=== PATIENT | male | born 1980 | race Caucasian/White ===

== ENCOUNTER 2016-11-26 18:12 | Emergency (ER) | payer BC ==
[~2016-11-26] VITALS: Ht 180.3 cm; Wt 80.0 kg
[2016-11-26 18:25] VITALS: TEMP 98.7; Ht 180.3 cm; Wt 80.0 kg
--- OUTSIDE RECORDS SUMMARY | 2016-11-26 18:43 | XMS REPORT ---
Author Author Nicko Young Organization eClinicalWorks Address Unknown Phone Unavailable Care Team Providers Care Citrix Systems Administrator Name Role Phone Nicko Young CP Unavailable Allergies No Known Allergies Problems Problem Type Condition Code Onset Dates Condition Status Problem Generalized anxiety disorder F41.1 Active Problem Screening for heart disease Z13.6 Active Problem Depression, unspecified depression type F32.9 Active Assessment Encounter for administrative examinations Z02.9 Active Problem Abnormal glucose R73.09 Active Problem Severe episode of recurrent major depressive disorder, without psychotic features F33.2 Active Problem Alcoholism F10.20 Active Problem Gastroesophageal reflux disease without esophagitis K21.9 Active Problem Alcohol withdrawal, with perceptual disturbance F10.232 Active Problem Fatigue, unspecified type R53.83 Active Problem Essential hypertension I10 Active Problem Anxiety F41.9 Active Medications Medication Code System Code Instructions Start Date End Date Status Dosage Pantoprazole Sodium [facility] [address]-43 40 MG Orally Once a day Mar 12, 2016 1 tablet Mens Multi Vitamin & Mineral [facility] [address] - Orally as directed Xanax XR [facility] [address]-40 1 MG Orally Once a day May 29, 2016 1 tablet Paxil [facility] [address]-88 40 MG Orally Once a day Apr 02, 2016 1 tablet in the morning Metoprolol Tartrate [facility] [address]-40 25 MG Orally Twice a day May 06, 2016 0.5 tablet with food Aspirin [facility] [address]-76 325 MG Orally Once a day 1 tablet Chlordiazepoxide HCl [facility] [address]-02 25 MG Orally BID prn Apr 30, 2016 1 capsule as needed Procedures Procedure Coding System Code Date FMLA Payment CPT-4 FMLA Jun 02, 2016 Results No Known Results Summary Purpose eClinicalWorks Submission
--- OUTSIDE RECORDS SUMMARY | 2016-11-26 18:43 | XMS REPORT ---
Author Author Ernesto Blair eClinicalWorks Address Unknown Phone Unavailable Care Team Providers Care Peoplesoft Analyst Name Role Phone Ernesto Blair CP Unavailable Allergies No Known Allergies Problems Problem Type Condition Code Onset Dates Condition Status Problem Screening for heart disease Z13.6 Active Problem Depression, unspecified depression type F32.9 Active Problem Fatigue, unspecified type R53.83 Active Problem Generalized anxiety disorder F41.1 Active Problem Abnormal glucose R73.09 Active Medications No Known Medications Results No Known Results Summary Purpose eClinicalWorks Submission
--- OUTSIDE RECORDS SUMMARY | 2016-11-26 18:43 | XMS REPORT ---
Author Author Nicko Young Organization eClinicalWorks Address Unknown Phone Unavailable Care Team Providers Care Ferryboat Deckhand Name Role Phone Nicko Young CP Unavailable Allergies No Known Allergies Problems Problem Type Condition Code Onset Dates Condition Status Problem Generalized anxiety disorder F41.1 Active Problem Abnormal glucose R73.09 Active Problem Essential hypertension I10 Active Problem Anxiety F41.9 Active Problem Alcoholism F10.20 Active Problem Screening for heart disease Z13.6 Active Problem Depression, unspecified depression type F32.9 Active Problem Alcohol withdrawal, with perceptual disturbance F10.232 Active Problem Fatigue, unspecified type R53.83 Active Medications No Known Medications Results No Known Results Summary Purpose eClinicalWorks Submission
--- OUTSIDE RECORDS SUMMARY | 2016-11-26 18:43 | XMS REPORT ---
Author Author Nicko Young Organization eClinicalWorks Address Unknown Phone Unavailable Care Team Providers Care Terrazzo Polisher Helper Name Role Phone Nicko Young CP Unavailable Allergies No Known Allergies Problems Problem Type Condition Code Onset Dates Condition Status Problem Generalized anxiety disorder F41.1 Active Problem Screening for heart disease Z13.6 Active Problem Depression, unspecified depression type F32.9 Active Problem Abnormal glucose R73.09 Active Problem Severe episode of recurrent major depressive disorder, without psychotic features F33.2 Active Problem Alcoholism F10.20 Active Problem Gastroesophageal reflux disease without esophagitis K21.9 Active Problem Alcohol withdrawal, with perceptual disturbance F10.232 Active Problem Fatigue, unspecified type R53.83 Active Problem Essential hypertension I10 Active Problem Anxiety F41.9 Active Medications No Known Medications Results No Known Results Summary Purpose eClinicalWorks Submission
--- OUTSIDE RECORDS SUMMARY | 2016-11-26 18:43 | XMS REPORT ---
Author Author Nicko Young Organization eClinicalWorks Address Unknown Phone Unavailable Care Team Providers Care Prescriptionist Name Role Phone Nicko Young CP Unavailable [...]
--- OUTSIDE RECORDS SUMMARY | 2016-11-26 18:43 | XMS REPORT ---
Author Author Ernesto Blair eClinicalWorks Address Unknown Phone Unavailable Care Team Providers Care Toy Assembly Supervisor Name Role Phone Ernesto Blair CP Unavailable Allergies, Adverse Reactions, Alerts Substance Reaction Event Type N.K.D.A. Info Not Available Non Drug Allergy Problems Problem Type Condition Code Onset Dates Condition Status Problem Generalized anxiety disorder F41.1 Active Problem Screening for heart disease Z13.6 Active Problem Depression, unspecified depression type F32.9 Active Problem Severe episode of recurrent major depressive disorder, without psychotic features F33.2 Active Problem Alcoholism F10.20 Active Problem Gastroesophageal reflux disease without esophagitis K21.9 Active Problem Alcohol withdrawal, with perceptual disturbance F10.232 Active Problem Fatigue, unspecified type R53.83 Active Problem Essential hypertension I10 Active Problem Anxiety F41.9 Active Assessment Elevated liver enzymes R74.8 Active Assessment Essential hypertension I10 Active Assessment Alcoholism F10.20 Active Assessment Severe episode of recurrent major depressive disorder, without psychotic features F33.2 Active Assessment Anxiety F41.9 Active Assessment Gastroesophageal reflux disease without esophagitis K21.9 Active Problem Abnormal glucose R73.09 Active Medications Medication Code System Code Instructions Start Date End Date Status Dosage Xanax XR [facility] [address]-50 1 MG Orally Once a day May 29, 2016 1 tablet Zofran ODT [facility] [address]-16 8 MG Orally TID Apr 28, 2016 May 28, 2016 1 tablet on the tongue and allow to dissolve Campral [facility] 0 333 MG Orally Three times a day May 06, 2016 May 10, 2016 2 tablets Metoprolol Tartrate [facility] [address]-32 25 MG Orally Twice a day May 06, 2016 0.5 tablet with food Aspirin [facility] [address]-18 325 MG Orally Once a day 1 tablet Mens Multi Vitamin & Mineral [facility] 66[address] - Orally as directed Naltrexone HCl [facility] [address]-07 50 MG Orally Once a day Apr 28, 2016 May 05, 2016 1 tablet Pantoprazole Sodium [facility] [address]-03 40 MG Orally Once a day Mar 12, 2016 1 tablet Paxil [facility] [address]-53 40 MG Orally Once a day Apr 02, 2016 1 tablet in the morning Chlordiazepoxide HCl [facility] [address]-61 25 MG Orally BID prn Apr 30, 2016 1 capsule as needed Procedures Procedure Coding System Code Date ASSAY OF GGT CPT-4 91952 May 29, 2016 VENIPUNCT, ROUTINE* CPT-4 10726 May 29, 2016 COMPREHEN METABOLIC PANEL CPT-4 15434 May 29, 2016 Office Visit, Est Pt., Level 3 CPT-4 77563 May 29, 2016 Vital Signs Date/Time: May 29, 2016 Weight 184.8 lbs Height 71 in Temperature 99.2 F Pulse 98 /min Blood Pressure Diastolic 92 mm Hg Blood Pressure Systolic 130 mm Hg Weight Change 3.2 lb lbs BMI 25.77 Index Oximetry 98% on room air % Results Name Result Date Reference Range Unit Abnormality Flag *GGT ----GGT 177 [id number] 12-64 U/L H eGFR ----eGFR >60 [id number] >60 mL/min *Comprehensive Metabolic Panel (CMP) ----Chloride 101 [id number] 99-111 mEq/L ----Potassium 4.8 19479729 3.5-5.2 mEq/L ----Albumin 4.4 17091687 3.5-5.0 g/dL ----CO2 29 [id number] 23-31 mEq/L ----Alkaline Phosphatase 132 [id number] 40-150 U/L ----Protein 7.0 21904007 6.1-7.7 g/dL ----Bilirubin Total 0.8 94910117 0.2-1.2 mg/dL ----Anion Gap 10 [id number] 3-20 ----Calcium 9.7 99923707 8.9-10.5 mg/dL ----Globulin 2.6 88547824 1.8-4.0 g/dL ----Sodium 140 [id number] 135-144 mEq/L ----BUN 4 [id number] 9-21 mg/dL L ----ALT (SGPT) 21 [id number] 0-55 U/L ----AST (SGOT) 36 [id number] 5-34 U/L H ----Creatinine 1.09 [id number] 0.72-1.25 mg/dL ----Glucose 85 [id number] 70-99 mg/dL Summary Purpose eClinicalWorks Submission
--- OUTSIDE RECORDS SUMMARY | 2016-11-26 18:43 | XMS REPORT ---
Author Author Ernesto Blair eClinicalWorks Address Unknown Phone Unavailable Care Team Providers Care Curtain Stitcher Name Role Phone Ernesto Blair CP Unavailable [...]
--- OUTSIDE RECORDS SUMMARY | 2016-11-26 18:44 | XMS REPORT | Continuity of Care Document ---
Author Author [facility] Organization [facility] Address Unknown Phone Unavailable Allergies Active Description Code Type Severity Reaction Onset Reported/Identified Relationship to Patient Clinical Status Yes No Known Allergies No Known Allergies Drug Allergy Unknown N/A 12/11/2013 Medications Problems Date Dx Coded Attending Type Code Diagnosis Diagnosed By 12/11/2013 Reece Santana MD 276.2 ACIDOSIS 12/11/2013 Reece Santana MD 276.51 DEHYDRATION 12/11/2013 Reece Santana MD 300.02 GENERALIZED ANXIETY DIS 12/11/2013 Reece Santana MD 305.00 ALCOHOL ABUSE-UNSPEC 12/11/2013 Reece Santana MD 305.1 TOBACCO USE DISORDER 12/11/2013 Reece Santana MD 305.90 DRUG ABUSE NEC-UNSPEC 12/11/2013 Reece Santana MD 462 ACUTE PHARYNGITIS 12/11/2013 Reece Santana MD 530.11 REFLUX ESOPHAGITIS 12/11/2013 Reece Santana MD 530.82 ESOPHAGEAL HEMORRHAGE 12/11/2013 Reece Santana MD 535.50 UNSP GASTRITIS GASTRODUODENITIS W/O MENTN HEMORG 12/11/2013 Reece Santana MD 553.3 DIAPHRAGMATIC HERNIA 12/11/2013 Reece Santana MD 584.9 ACUTE RENAL FAILURE, UNSPECIFIED 12/11/2013 Reece Santana MD 780.1 HALLUCINATIONS 12/11/2013 Reece Santana MD 782.4 JAUNDICE NOS 12/11/2013 Reece Santana MD 787.01 NAUSEA WITH VOMITING Procedures Code Description Performed By Performed On 45.16 ESOPHAGOGASTRODUODENOSCOPY [EGD] W/CLOSED BIOPSY Arin YEH, Jose Antonio N 12/11/2013 Results Test Result Range CHEM/HEM PROFILE-BEDSIDE - 12/11/13 07:38 POTASSIUM 3.5 mmol/L 3.5-5.3 METHOD Bedside ANION GAP 30 mmol/L 10-20 METHOD Bedside GLUCOSE 146 mg/dL 70-99 BLOOD UREA NITROGEN 17 mg/dL 7-20 CREATININE 1.5 mg/dL 0.8-1.3 HEMOGLOBIN 18.4 gm/dL 14.0-18.0 HEMATOCRIT 54.0 % 40.0-54.0 SODIUM 138 mmol/L 135-148 CHLORIDE 104 mmol/L 98-110 CARBON DIOXIDE 9 mmol/L 21-32 CALCIUM IONIZED 3.9 mg/dL 4.5-5.3 CBC W/DIFF - 12/11/13 07:38 COMMENT REVIEWED GRANULOCYTE # 15.8 k/cumm 2.0-9.0 GRANULOCYTE % 88 % 50-75 LYMPHOCYTE # 1.0 k/cumm 1.0-4.0 LYMPHOCYTE % 5 % 20-30 MEAN CELL HGB 31.6 pg 27.0-33.0 MEAN CELL HGB CONCENTRATION 35.1 g/dL 32.0-37.0 MEAN CELL VOLUME 90.1 fl 80.0-100.0 MONOCYTE # 1.3 k/cumm 0.1-1.0 MONOCYTE % 7 % 4-6 RED BLOOD CELL 5.63 m/cumm 4.00-6.00 RED CELL DISTRIBUTION WIDTH 12.5 % 11.0- 15.6 WHITE BLOOD CELL 18.1 k/cumm 5.0-10.0 HEMOGLOBIN 17.8 gm/dL 14.0-18.0 HEMATOCRIT 50.7 % 40.0-54.0 PLATELET COUNT 339 k/cumm 150-400 HEPATIC FUNCTION PANEL - 12/11/13 07:38 BILI UNCONJUGATED 1.6 mg/dL 0.0-0.7 AST/SGOT 75 Units/L 10-37 ALT/SGPT 75 Units/L < 66 TOTAL PROTEIN 9.1 gm/dL 6.4-8.2 ALBUMIN 5.0 gm/dL 3.4-5.0 BILI TOTAL 1.8 mg/dL 0.0-1.0 ALKALINE PHOSPHATASE TOTAL 110 IU/L 45- 117 BILI CONJUGATED 0.2 mg/dL 0.0-0.3 LIPASE - 12/11/13 07:38 LIPASE 116 Units/L 73-393 GAMMA GLUTAMYL TRANSFERASE - 12/11/13 07:38 GAMMA GLUTAMYL TRANSFERASE 42 Units/L 15- 85 HEPATITIS PANEL-ACUTE - 12/11/13 07:38 AB HEPATITIS A IGM NEGATIVE NEGATIVE AG HEPATITIS B SURF. NEGATIVE NEGATIVE AB HEPATITIS B CORE IGM NEGATIVE NEGATIVE AB HEPATITIS C NEGATIVE NEGATIVE URINALYSIS, ROUTINE - 12/11/13 08:30 UA LEUKOCYTE ESTERASE DIPSTICK NEGATIVE NEGATIVE UA NITRITE DIPSTICK NEGATIVE NEGATIVE UA PROTEIN DIPSTICK TRACE NEGATIVE UA GLUCOSE DIPSTICK NEGATIVE NEGATIVE UA KETONE DIPSTICK 3+ NEGATIVE UA UROBILINOGEN DIPSTICK NORMAL NORMAL UA BILIRUBIN DIPSTICK NEGATIVE NEGATIVE UA BLOOD DIPSTICK NEGATIVE NEGATIVE UA SPECIFIC GRAVITY 1.020 1.015-1.025 UR PH 5.0 5.0-7.0 UA MICROSCOPIC - 12/11/13 08:30 UA BACTERIA 1+ NEGATIVE UA EPITHELIAL CELLS 2+ epi/hpf 0 - 1+ UA GRANULAR CAST >10 cast/lpf NEGATIVE UA MUCUS 1+ NEG TO 1+ UA RBC 0-3 rbc/hpf 0 - 3 UA VOLUME FOR EXAM 12.0 mL (12mL STD) UA WBC 0-1 wbc/hpf 0 - 5 UR DRUGS OF ABUSE SCREEN - 12/11/13 08:30 UR AMPHETAMINES SCREEN NEG (<1000 ng/mL) NEGATIVE UR BARBITURATE SCREEN NEG (< 200 ng/mL) NEGATIVE DRUGS OF ABUSE SCREEN COMMENT UR OPIATES SCREEN POS (> 300 ng/mL) NEGATIVE UR PHENCYCLIDINE (PCP) SCREEN NEG (< 25 ng/mL) NEGATIVE UR CANNABINOIDS (THC) SCREEN POS (> 50 ng/mL) NEGATIVE UR COCAINE METABOLITE SCREEN NEG (< 300 ng/mL) NEGATIVE UR METHADONE SCREEN NEG (< 300 ng/mL) NEGATIVE UR BENZODIAZEPINE SCREEN NEG (< 200 ng/mL) NEGATIVE GASTRIC OCCULT BLOOD/pH - 12/11/13 08:50 GASTRIC PH 2 Not Defined OCCULT BLOOD EMESIS POSITIVE NEGATIVE HELICOBACTER UREASE SCREEN - 12/11/13 13:09 Microbiology HGB HCT - 12/11/13 18:29 MEAN CELL VOLUME 92.6 fl 80.0-100.0 HEMOGLOBIN 15.1 gm/dL 14.0-18.0 HEMATOCRIT 43.6 % 40.0-54.0 RENAL FUNCTION PANEL - 12/11/13 18:29 POTASSIUM 3.7 mmol/L 3.5-5.3 EST GFR (MDRD) > 60 mL/min > 59 ANION GAP 14 mmol/L 5-15 EST CrCl (CG) > 60 mL/min > 59 GLUCOSE 114 mg/dL 70-99 CALCIUM 7.8 mg/dL 8.5-10.1 BLOOD UREA NITROGEN 16 mg/dL 7-20 CREATININE 1.2 mg/dL 0.8-1.3 SODIUM 141 mmol/L 135-148 CHLORIDE 106 mmol/L 98-110 CARBON DIOXIDE 21 mmol/L 21-32 ALBUMIN 3.8 gm/dL 3.4-5.0 PHOSPHORUS 1.6 mg/dL 2.5-4.9 CBC W/DIFF - 12/12/13 05:19 COMMENT REVIEWED GRANULOCYTE # 9.5 k/cumm 2.0-9.0 GRANULOCYTE % 83 % 50-75 LYMPHOCYTE # 1.1 k/cumm 1.0-4.0 LYMPHOCYTE % 10 % 20-30 MEAN CELL HGB 32.5 pg 27.0-33.0 MEAN CELL HGB CONCENTRATION 35.0 g/dL 32.0-37.0 MEAN CELL VOLUME 92.9 fl 80.0-100.0 MONOCYTE # 0.8 k/cumm 0.1-1.0 MONOCYTE % 7 % 4-6 RED BLOOD CELL 4.37 m/cumm 4.00-6.00 RED CELL DISTRIBUTION WIDTH 12.3 % 11.0- 15.6 WHITE BLOOD CELL 11.5 k/cumm 5.0-10.0 HEMOGLOBIN 14.2 gm/dL 14.0-18.0 HEMATOCRIT 40.6 % 40.0-54.0 PLATELET COUNT 159 k/cumm 150-400 METABOLIC PANEL, COMPREHN - 12/12/13 05:19 POTASSIUM 3.4 mmol/L 3.5-5.3 EST GFR (MDRD) > 60 mL/min > 59 ANION GAP 13 mmol/L 5-15 EST CrCl (CG) > 60 mL/min > 59 GLUCOSE 92 mg/dL 70-99 CALCIUM 7.9 mg/dL 8.5-10.1 BLOOD UREA NITROGEN 11 mg/dL 7-20 CREATININE 0.9 mg/dL 0.8-1.3 SODIUM 142 mmol/L 135-148 CHLORIDE 107 mmol/L 98-110 AST/SGOT 41 Units/L 10-37 ALT/SGPT 45 Units/L < 66 CARBON DIOXIDE 22 mmol/L 21-32 TOTAL PROTEIN 6.7 gm/dL 6.4-8.2 ALBUMIN 3.5 gm/dL 3.4-5.0 BILI TOTAL 0.8 mg/dL 0.0-1.0 ALKALINE PHOSPHATASE TOTAL 68 IU/L 45- 117 PHOSPHORUS - 12/12/13 05:19 PHOSPHORUS 1.2 mg/dL 2.5-4.9 MAGNESIUM - 12/12/13 05:19 MAGNESIUM 2.2 mg/dL 1.8-2.4 STREP THROAT SCREEN (GROUP A) - STREP THROAT CULTURE (GROUP A) - 12/12/13 14: 10 Microbiology METABOLIC PANEL, [facility] - 12/13/13 04:24 POTASSIUM 3.6 mmol/L 3.5-5.3 EST GFR (MDRD) > 60 mL/min > 59 ANION GAP 13 mmol/L 5-15 EST CrCl (CG) > 60 mL/min > 59 GLUCOSE 90 mg/dL 70-99 CALCIUM 8.0 mg/dL 8.5-10.1 BLOOD UREA NITROGEN 7 mg/dL 7-20 CREATININE 0.8 mg/dL 0.8-1.3 SODIUM 140 mmol/L 135-148 CHLORIDE 105 mmol/L 98-110 AST/SGOT 70 Units/L 10-37 ALT/SGPT 58 Units/L < 66 CARBON DIOXIDE 22 mmol/L 21-32 TOTAL PROTEIN 6.9 gm/dL 6.4-8.2 ALBUMIN 3.5 gm/dL 3.4-5.0 BILI TOTAL 1.1 mg/dL 0.0-1.0 ALKALINE PHOSPHATASE TOTAL 68 IU/L 45- 117 CBC W/DIFF - 12/13/13 05:01 GRANULOCYTE # 5.2 k/cumm 2.0-9.0 GRANULOCYTE % 68 % 50-75 LYMPHOCYTE # 1.8 k/cumm 1.0-4.0 LYMPHOCYTE % 23 % 20-30 MEAN CELL HGB 31.9 pg 27.0-33.0 MEAN CELL HGB CONCENTRATION 34.1 g/dL 32.0-37.0 MEAN CELL VOLUME 93.8 fl 80.0-100.0 MONOCYTE # 0.7 k/cumm 0.1-1.0 MONOCYTE % 9 % 4-6 RED BLOOD CELL 4.32 m/cumm 4.00-6.00 RED CELL DISTRIBUTION WIDTH 12.3 % 11.0- 15.6 WHITE BLOOD CELL 7.7 k/cumm 5.0-10.0 HEMOGLOBIN 13.8 gm/dL 14.0-18.0 HEMATOCRIT 40.5 % 40.0-54.0 PLATELET COUNT 150 k/cumm 150-400 Encounters ACCT No. Visit Date/Time Discharge Status Pt. Type Provider Facility Loc./Unit Complaint [id number] 12/11/2013 08:35:00 2013 14:50:00 DIS Inpatient Max YEH, [facility] [id number]
--- OUTSIDE RECORDS SUMMARY | 2016-11-26 18:44 | XMS REPORT ---
Author Author Nicko Young Organization eClinicalWorks Address Unknown Phone Unavailable Care Team Providers Care Environmental Solutions Engineer Name Role Phone Nicko Young CP Unavailable Allergies No Known Allergies Problems Problem Type Condition Code Onset Dates Condition Status Problem Fatigue, unspecified type R53.83 Active Problem Screening for heart disease Z13.6 Active Problem Anxiety F41.9 Active Problem Abnormal glucose R73.09 Active Problem Depression, unspecified depression type F32.9 Active Problem Generalized anxiety disorder F41.1 Active Medications Medication Code System Code Instructions Start Date End Date Status Dosage Aspirin [facility] [address]-60 325 MG Orally Once a day 1 tablet Mens Multi Vitamin & Mineral [facility] [place] [address] - Orally as directed Pantoprazole Sodium [facility] [address]-42 40 MG Orally Once a day Mar 12, 2016 1 tablet Chlordiazepoxide HCl [facility] [address]-47 25 MG Orally every 4 hours today, then every 6 hours then every 8 hours Thursday and Thursday then BID Apr 30, 2016 1 capsule as needed Xanax XR [facility] [place] [address]-49 0.5 MG Orally Once a day Mar 12, 2016 1 tablet Paxil [facility] [place] [address]-51 40 MG Orally Once a day Apr 02, 2016 1 tablet in the morning Zofran ODT [facility] [place] [address]-70 8 MG Orally TID Apr 28, 2016 1 tablet on the tongue and allow to dissolve Naltrexone HCl [facility] [place] [address]-96 50 MG Orally Once a day Apr 28, 2016 1 tablet Results No Known Results Summary Purpose eClinicalWorks Submission
--- OUTSIDE RECORDS SUMMARY | 2016-11-26 18:44 | XMS REPORT ---
Author Author Ernesto Blair eClinicalWorks Address Unknown Phone Unavailable Care Team Providers Care Concrete Plant Laborer Name Role Phone Ernesto Blair CP Unavailable Allergies, Adverse Reactions, Alerts Substance Reaction Event Type N.K.D.A. Info Not Available Non Drug Allergy Problems Problem Type Condition Code Onset Dates Condition Status Problem Screening for heart disease Z13.6 Active Problem Depression, unspecified depression type F32.9 Active Problem Fatigue, unspecified type R53.83 Active Assessment Vomiting R11.10 Active Assessment Dehydration E86.0 Active Problem Generalized anxiety disorder F41.1 Active Problem Abnormal glucose R73.09 Active Medications Medication Code System Code Instructions Start Date End Date Status Dosage Paxil [facility] [address]-60 40 mg Orally Once a day Mar 12, 2016 1 tablet in the morning Aspirin [facility] [address]-67 325 MG Orally Once a day 1 tablet Xanax XR [facility] [address]-98 0.5 MG Orally Once a day Mar 12, 2016 1 tablet Pantoprazole Sodium [facility] [address]-05 40 mg Orally Once a day Mar 12, 2016 1 tablet Mens Multi Vitamin & Mineral [facility] [address] - Orally as directed Procedures Procedure Coding System Code Date THER/PROPH/DIAG IV INF ADDON CPT-4 71236 Mar 13, 2016 THER/PROPH/DIAG IV INF, INIT CPT-4 66570 Mar 13, 2016 SPL EXT RX INFUS PUMP-CASSETTE/BAG CPT-4 A4222 Mar 13, 2016 Office Visit, Est Pt., Level 3 CPT-4 65426 Mar 13, 2016 Vital Signs Date/Time: Mar 13, 2016 Weight 182.2 lbs Height 71 in Temperature 98.5 F Oximetry 97% RA % Pulse 111 /min Blood Pressure Diastolic 88 mm Hg Blood Pressure Systolic 142 mm Hg BMI 25.41 Index Results No Known Results Summary Purpose eClinicalWorks Submission
--- OUTSIDE RECORDS SUMMARY | 2016-11-26 18:44 | XMS REPORT ---
Author Author Nicko Young eClinical[employer] Address Unknown Phone Unavailable Care Team Providers Care Sap Business Objects Developer Name Role Phone Nicko Young CP Unavailable Allergies, Adverse Reactions, Alerts Substance Reaction Event Type N.K.D.A. Info Not Available Non Drug Allergy Problems Problem Type Condition Code Onset Dates Condition Status Assessment Alcohol withdrawal delirium, acute, hyperactive F10.231 Active Assessment Anxiety F41.9 Active Problem Alcohol withdrawal, with perceptual disturbance F10.232 Active Problem Fatigue, unspecified type R53.83 Active Problem Anxiety F41.9 Active Problem Generalized anxiety disorder F41.1 Active Problem Abnormal glucose R73.09 Active Problem Screening for heart disease Z13.6 Active Problem Depression, unspecified depression type F32.9 Active Medications Medication Code System Code Instructions Start Date End Date Status Dosage Chlordiazepoxide HCl [facility] [address]-20 25 MG Orally every 4 hours today, then every 6 hours then every 8 hours Thursday and Thursday then BID Apr 30, 2016 1 capsule as needed Naltrexone HCl [facility] [address]-59 50 MG Orally Once a day Apr 28, 2016 1 tablet Xanax XR [facility] [address]-65 0.5 MG Orally Once a day Mar 12, 2016 1 tablet Mens Multi Vitamin & Mineral [facility] [address] - Orally as directed Paxil [facility] [address]-61 40 MG Orally Once a day Apr 02, 2016 1 tablet in the morning Pantoprazole Sodium [facility] [address]-05 40 MG Orally Once a day Mar 12, 2016 1 tablet Zofran ODT [facility] [address]-59 8 MG Orally TID Apr 28, 2016 1 tablet on the tongue and allow to dissolve Aspirin [facility] [address]-66 325 MG Orally Once a day 1 tablet Procedures Procedure Coding System Code Date Office Visit, Est Pt., Level 3 CPT-4 53619 Apr 30, 2016 Vital Signs Date/Time: Apr 30, 2016 Weight 168.4 lbs Height 71 in Temperature 98.7 F Pulse 113 /min Blood Pressure Diastolic 80 mm Hg Blood Pressure Systolic 150 mm Hg Weight Change -1 lb lbs BMI 23.48 Index Oximetry 97%RA % Results No Known Results Summary Purpose eClinicalWorks Submission
--- OUTSIDE RECORDS SUMMARY | 2016-11-26 18:44 | XMS REPORT ---
Author Author Nicko Young Organization [employer] Address Unknown Phone Unavailable Care Team Providers Care Apparel Rental Clerk Name Role Phone Nicko Young CP Unavailable [...]
--- OUTSIDE RECORDS SUMMARY | 2016-11-26 18:44 | XMS REPORT ---
Author Author Nicko Young eClinicalWorks Address Unknown Phone Unavailable Care Team Providers Care Project Admin Name Role Phone Nicko Young CP Unavailable Allergies, Adverse Reactions, Alerts Substance Reaction Event Type N.K.D.A. Info Not Available Non Drug Allergy Problems Problem Type Condition Code Onset Dates Condition Status Assessment Anxiety F41.9 Active Problem Generalized anxiety disorder F41.1 Active Problem Abnormal glucose R73.09 Active Assessment Essential hypertension I10 Active Assessment Alcoholism F10.20 Active Problem Essential hypertension I10 Active Problem Anxiety F41.9 Active Problem Alcoholism F10.20 Active Problem Screening for heart disease Z13.6 Active Problem Depression, unspecified depression type F32.9 Active Problem Alcohol withdrawal, with perceptual disturbance F10.232 Active Problem Fatigue, unspecified type R53.83 Active Medications Medication Code System Code Instructions Start Date End Date Status Dosage Naltrexone HCl [facility] [address]-31 50 MG Orally Once a day Apr 28, 2016 1 tablet Aspirin [facility] [address]-93 325 MG Orally Once a day 1 tablet Paxil [facility] [address]-37 40 MG Orally Once a day Apr 02, 2016 1 tablet in the morning Pantoprazole Sodium [facility] [address]-27 40 MG Orally Once a day Mar 12, 2016 1 tablet Mens Multi Vitamin & Mineral [facility] [address] - Orally as directed Zofran ODT [facility] [address]-66 8 MG Orally TID Apr 28, 2016 1 tablet on the tongue and allow to dissolve Chlordiazepoxide HCl [facility] [address]-99 25 MG Orally every 4 hours today, then every 6 hours then every 8 hours Thursday and Thursday then BID Apr 30, 2016 1 capsule as needed Campral ND 0 333 MG Orally Three times a day May 06, 2016 2 tablets Metoprolol Tartrate [facility] [address]-43 25 MG Orally Twice a day May 06, 2016 0.5 tablet with food Xanax XR [facility] [address]-97 0.5 MG Orally Once a day Mar 12, 2016 1 tablet Procedures Procedure Coding System Code Date Office Visit, Est Pt., Level 3 CPT-4 75388 May 06, 2016 Vital Signs Date/Time: May 06, 2016 Weight 181.6 lbs Height 71 in Temperature 98.7 F Pulse 72 /min Blood Pressure Diastolic 100 mm Hg Blood Pressure Systolic 140 mm Hg Weight Change 13.2 lb lbs BMI 25.33 Index Oximetry 98% on room air % Results No Known Results Summary Purpose eClinicalWorks Submission
--- OUTSIDE RECORDS SUMMARY | 2016-11-26 18:44 | XMS REPORT ---
Author Author Nicko Young [facility] eClinicalWorks Address Unknown Phone Unavailable Care Team Providers Care Construction Lineman Name Role Phone Nicko Young CP Unavailable Allergies, Adverse Reactions, Alerts Substance Reaction Event Type N.K.D.A. Info Not Available Non Drug Allergy Problems Problem Type Condition Code Onset Dates Condition Status Assessment Alcohol withdrawal, with perceptual disturbance F10.232 Active Assessment Alcoholism F10.20 Active Assessment Anxiety F41.9 Active Problem Fatigue, unspecified type R53.83 Active Problem Screening for heart disease Z13.6 Active Problem Alcohol withdrawal, with perceptual disturbance F10.232 Active Problem Abnormal glucose R73.09 Active Assessment Bilious vomiting with nausea R11.14 Active Problem Depression, unspecified depression type F32.9 Active Problem Generalized anxiety disorder F41.1 Active Medications Medication Code System Code Instructions Start Date End Date Status Dosage Aspirin [facility] [address]-87 325 MG Orally Once a day 1 tablet Naltrexone HCl [facility] [address]-40 50 MG Orally Once a day Apr 28, 2016 1 tablet Xanax XR [facility] [address]-78 0.5 MG Orally Once a day Mar 12, 2016 1 tablet Paxil [facility] [address]-99 40 MG Orally Once a day Apr 02, 2016 1.5 tablets in the morning Mens Multi Vitamin & Mineral [facility] [address] - Orally as directed Zofran ODT [facility] [address]-14 8 MG Orally TID Apr 28, 2016 1 tablet on the tongue and allow to dissolve Pantoprazole Sodium [facility] [address]-96 40 MG Orally Once a day Mar 12, 2016 1 tablet Procedures Procedure Coding System Code Date COMPREHEN METABOLIC PANEL CPT-4 32304 Apr 28, 2016 ASSAY OF GGT CPT-4 16568 Apr 28, 2016 COMPLETE CBC W/AUTO DIFF WBC CPT-4 95870 Apr 28, 2016 VENIPUNCT, ROUTINE* CPT-4 00840 Apr 28, 2016 ASSAY THYROID STIM HORMONE CPT-4 02553 Apr 28, 2016 Office Visit, Est Pt., Level 3 CPT-4 90431 Apr 28, 2016 Vital Signs Date/Time: Apr 28, 2016 Weight 169.4 lbs Height 71 in Temperature 97.3 F Pulse 103 /min Blood Pressure Diastolic 78 mm Hg Blood Pressure Systolic 134 mm Hg Weight Change -8.8 lb lbs BMI 23.62 Index Oximetry 97%ra % Results Name Result Date Reference Range Unit Abnormality Flag *CBC With Platelet and Differential ----Immature Granulocytes 0.4 84111911 0.0-1.0 % ----Platelet Count 184 05218501 150-400 K/uL ----Monocytes 13 16574884 4-11 % H ----HGB 15.9 83012969 14.0-18.0 g/dL ----Lymphocytes 16 89217759 20-46 % L ----HCT 44.9 19197580 42.0-52.0 % ----Neutrophils 70 51274329 51-75 % ----MCV 90.3 24655186 82.0-99.0 fL ----Absolute Basophils 0.02 43020564 0.00-0.20 10*3 ----MCH 32.0 41734527 27.0-32.0 pg ----Absolute Eosinophils 0.02 36115847 0.00-0.50 10*3 ----MCHC 35.4 47496761 32.0-36.0 g/dL ----Eosinophils 0 40712020 0-4 % ----Absolute Monocytes 0.72 55496034 0.30-1.00 10*3 ----RDW 14.1 52784973 11.5-14.5 % ----Basophils 0 29143160 0-2 % ----WBC 5.4 72342685 4.8-10.8 K/uL ----MPV 9.6 90702563 8.8-14.8 fL ----Absolute Lymphocytes 0.87 94085506 0.80-3.30 10*3 ----RBC 4.97 84564372 4.60-6.20 10*6/uL ----Absolute Neutrophils 3.79 70359135 1.90-7.00 10*3 *Comprehensive Metabolic Panel (CMP) ----AST (SGOT) 776 81070921 5-34 U/L H ----Sodium 141 35987840 135-144 mEq/L ----Calcium 10.0 99380985 8.9-10.5 mg/dL ----ALT (SGPT) 446 33933590 0-55 U/L H ----Chloride 100 41056641 99-111 mEq/L ----Protein 8.0 69119702 6.1-7.7 g/dL H ----Potassium 3.8 47364524 3.5-5.2 mEq/L ----Alkaline Phosphatase 134 55171901 40-150 U/L ----Glucose 99 70110017 70-99 mg/dL ----Globulin 3.0 29914861 1.8-4.0 g/dL ----Creatinine 0.87 89518400 0.72-1.25 mg/dL ----Anion Gap 24 52638086 3-20 H ----BUN 4 16919675 9-21 mg/dL L ----Bilirubin Total 1.0 55360551 0.2-1.2 mg/dL ----CO2 17 52006718 23-31 mEq/L L ----Albumin 5.0 85733580 3.5-5.0 g/dL eGFR ----eGFR >60 03490640 >60 mL/min *TSH ----TSH 3.02 28984098 0.35-4.94 uIU/mL *GGT ----GGT 255 78099822 12-64 U/L H Summary Purpose eClinicalWorks Submission
--- OUTSIDE RECORDS SUMMARY | 2016-11-26 18:44 | XMS REPORT ---
Author Author Ernesto Blair eClinicalWorks Address Unknown Phone Unavailable Care Team Providers Care Inspector Production Plastic Parts Name Role Phone Ernesto Blair CP Unavailable Allergies, Adverse Reactions, Alerts Substance Reaction Event Type N.K.D.A. Info Not Available Non Drug Allergy Problems Problem Type Condition Code Onset Dates Condition Status Assessment Gastroesophageal reflux disease without esophagitis K21.9 Active Problem Screening for heart disease Z13.6 Active Problem Depression, unspecified depression type F32.9 Active Problem Fatigue, unspecified type R53.83 Active Assessment Depression, unspecified depression type F32.9 Active Assessment Generalized anxiety disorder F41.1 Active Problem Generalized anxiety disorder F41.1 Active Problem Abnormal glucose R73.09 Active Medications Medication Code System Code Instructions Start Date End Date Status Dosage Medrol (Otoniel) NDC 0 4 mg Orally daily Mar 18, 2016 Mar 23, 2016 as directed Mens Multi Vitamin & Mineral [facility] [address] - Orally as directed Aspirin [facility] [address]-18 325 MG Orally Once a day 1 tablet Pantoprazole Sodium [facility] [address]-22 40 MG Orally Once a day Mar 12, 2016 1 tablet Paxil [facility] [address]-31 40 MG Orally Once a day Apr 02, 2016 1.5 tablets in the morning Augmentin [facility] [address]-80 875-125 MG Orally every 12 hrs Mar 18, 2016 Mar 28, 2016 1 tablet Xanax XR [facility] [address]-86 0.5 MG Orally Once a day Mar 12, 2016 1 tablet Procedures Procedure Coding System Code Date Office Visit, Est Pt., Level 3 CPT-4 66514 Apr 02, 2016 Vital Signs Date/Time: Apr 02, 2016 Weight 178.2 lbs Height 71 in Temperature 99.0 F Pulse 122 /min Blood Pressure Diastolic 94 mm Hg Blood Pressure Systolic 110 mm Hg Weight Change -2.2 lb lbs BMI 24.85 Index Oximetry 97% on room air at rest % Results No Known Results Summary Purpose eClinicalWorks Submission
--- OUTSIDE RECORDS SUMMARY | 2016-11-26 18:44 | XMS REPORT ---
Author Author Nicko Young Organization eClinicalWorks Address Unknown Phone Unavailable Care Team Providers Care Janitorial Tech Name Role Phone Nicko Young CP Unavailable [...]
--- OUTSIDE RECORDS SUMMARY | 2016-11-26 18:44 | XMS REPORT ---
Author Author Nicko Young Organization [employer]ClinicalWorks Address Unknown Phone Unavailable Care Team Providers Care Coin Machine Service Repairer Name Role Phone Nicko Young CP Unavailable Allergies No Known Allergies Problems Problem Type Condition Code Onset Dates Condition Status Problem Generalized anxiety disorder F41.1 Active Problem Screening for heart disease Z13.6 Active Problem Depression, unspecified depression type F32.9 Active Assessment Gastroesophageal reflux disease without esophagitis K21.9 Active Problem Abnormal glucose R73.09 Active Problem [...] Date End Date Status Dosage Pantoprazole Sodium [facility] [address]-10 40 MG Orally Once a day Mar 12, 2016 1 tablet Results No Known Results Summary Purpose eClinicalWorks Submission
--- OUTSIDE RECORDS SUMMARY | 2016-11-26 18:44 | XMS REPORT ---
Author Author Ernesto Blair eClinicalWorks Address Unknown Phone Unavailable Care Team Providers Care Forming Yardage Control Operator Name Role Phone Ernesto Blair CP Unavailable Allergies, Adverse Reactions, Alerts Substance Reaction Event Type N.K.D.A. Info Not Available Non Drug Allergy Problems Problem Type Condition Code Onset Dates Condition Status Assessment Intractable vomiting with nausea, vomiting of unspecified type R11.2 Active Assessment Gastroesophageal reflux disease without esophagitis [...] Date End Date Status Dosage Xanax XR [facility] [address]-00 0.5 MG Orally Once a day Mar 12, 2016 1 tablet Aspirin [facility] [address]-92 325 MG Orally Once a day 1 tablet Mens Multi Vitamin & Mineral [facility] [address] - Orally as directed Paxil [facility] [address]-75 40 mg Orally Once a day Mar 12, 2016 1 tablet in the morning Pantoprazole Sodium [facility] [address]-14 40 mg Orally Once a day Mar 12, 2016 1 tablet Procedures Procedure Coding System Code Date Office Visit, Est Pt., Level 4 CPT-4 14379 Mar 12, 2016 Vital Signs Date/Time: Mar 12, 2016 Weight 180.6 lbs Height 71 in Temperature 99.1 F Pulse 85 /min Blood Pressure Diastolic 90 mm Hg Blood Pressure Systolic 120 mm Hg Weight Change -6.4 lb lbs BMI 25.19 Index Oximetry 96% % Results No Known Results Summary Purpose eClinicalWorks Submission
--- OUTSIDE RECORDS SUMMARY | 2016-11-26 18:44 | XMS REPORT ---
Author Author Ernesto Blair eClinicalWorks Address Unknown Phone Unavailable Care Team Providers Care Belting Cutter Name Role Phone Ernesto Blair CP Unavailable Allergies, Adverse Reactions, Alerts Substance Reaction Event Type N.K.D.A. Info Not Available Non Drug Allergy Problems Problem Type Condition Code Onset Dates Condition Status Problem Screening for heart disease Z13.6 Active Problem Depression, unspecified depression type F32.9 Active Problem Fatigue, unspecified type R53.83 Active Assessment Sore throat J02.9 Active Assessment Uvulitis K12.2 Active Problem Generalized anxiety disorder F41.1 Active Problem Abnormal glucose R73.09 Active Medications Medication Code System Code Instructions Start Date End Date Status Dosage Paxil [facility] [address]-47 40 mg Orally Once a day Mar 12, 2016 1 tablet in the morning Medrol (Otoniel) ND 0 4 mg Orally daily Mar 18, 2016 as directed Aspirin [facility] [address]-64 325 MG Orally Once a day 1 tablet Xanax XR [facility] [address]-23 0.5 MG Orally Once a day Mar 12, 2016 1 tablet Pantoprazole Sodium [facility] [address]-52 40 mg Orally Once a day Mar 12, 2016 1 tablet Augmentin [facility] [address]-80 875-125 MG Orally every 12 hrs Mar 18, 2016 1 tablet Mens Multi Vitamin & Mineral [facility] [address] - Orally as directed Procedures Procedure Coding System Code Date Depo-Medrol (Methylprednisolone Acetate) CPT-4 J1030 Mar 18, 2016 Office Visit, Est Pt., Level 3 CPT-4 47038 Mar 18, 2016 STREP A ASSAY W/OPTIC CPT-4 84690 Mar 18, 2016 Vital Signs Date/Time: Mar 18, 2016 Weight 180.4 lbs Height 71 in Temperature 97.9 F Pulse 86 /min Blood Pressure Diastolic 98 mm Hg Blood Pressure Systolic 140 mm Hg Weight Change -1.8 lb lbs BMI 25.16 Index Oximetry 98% % Results No Known Results Summary Purpose eClinicalWorks Submission
--- OUTSIDE RECORDS SUMMARY | 2016-11-26 18:44 | XMS REPORT ---
Author Author Nicko Young Organization eClinicalWorks Address Unknown Phone Unavailable Care Team Providers Care Diversional Therapist'S Assistant Name Role Phone Nicko Young CP Unavailable [...]
--- OUTSIDE RECORDS SUMMARY | 2016-11-26 18:44 | XMS REPORT ---
Author Author Nicko Young Organization eClinicalWorks Address Unknown Phone Unavailable Care Team Providers Care Classroom Coordinator Name Role Phone Nicko Young CP Unavailable [...]
--- OUTSIDE RECORDS SUMMARY | 2016-11-26 18:44 | XMS REPORT ---
Author Author Nicko Young [facility] eClinicalWorks Address Unknown Phone Unavailable Care Team Providers Care Vp Name Role Phone Nicko Young CP Unavailable Allergies, Adverse Reactions, Alerts Substance Reaction Event Type N.K.D.A. Info Not Available Non Drug Allergy Problems Problem Type Condition Code Onset Dates Condition Status Assessment Abnormal glucose R73.09 Active Assessment Depression, unspecified depression type F32.9 Active Assessment Generalized anxiety disorder F41.1 Active Problem Screening for heart disease Z13.6 Active Problem Depression, unspecified depression type F32.9 Active Problem Fatigue, unspecified type R53.83 Active Assessment Fatigue, unspecified type R53.83 Active Assessment Screening for heart disease Z13.6 Active Problem Generalized anxiety disorder F41.1 Active Problem Abnormal glucose R73.09 Active Medications Medication Code System Code Instructions Start Date End Date Status Dosage Prilosec [facility] [address]-76 20 MG Orally Once a day 2 capsules Mens Multi Vitamin & Mineral [facility] [address] - Orally as directed Aspirin [facility] [address]-50 325 MG Orally Once a day 1 tablet Paxil [facility] [address]-23 20 mg Orally Once a day February 12, 2016 1 tablet in the morning Xanax [facility] [address]-60 0.25 MG Orally BID prn February 12, 2016 1 tablet Procedures Procedure Coding System Code Date COMPREHEN METABOLIC PANEL CPT-4 28438 February 12, 2016 LIPID PANEL CPT-4 47714 February 12, 2016 COMPLETE CBC W/AUTO DIFF WBC CPT-4 51534 February 12, 2016 Office Visit, New Pt., Level 3 CPT-4 80606 February 12, 2016 ASSAY THYROID STIM HORMONE CPT-4 16149 February 12, 2016 GLYCATED HEMOGLOBIN TEST CPT-4 45906 February 12, 2016 Vital Signs Date/Time: February 12, 2016 Weight 187.0 lbs Height 71 in Temperature 99.1 F Oximetry 97% % Pulse 103 /min Blood Pressure Diastolic 90 mm Hg Blood Pressure Systolic 142 mm Hg BMI 26.08 Index Results Name Result Date Reference Range Unit Abnormality Flag eGFR ----eGFR >60 45476380 >60 mL/min *Lipid Panel ----VLDL Cholesterol 14 15011236 0-28 mg/dL ----LDL Cholesterol 167 63388375 0-130 mg/dL H ----Cardiac Risk 3.1 59795948 0.0-5.7 ----Cholesterol 266 65278548 0-199 mg/dL H ----HDL Cholesterol 85 79430378 40-84 mg/dL H ----Triglycerides 68 48349572 0-149 mg/dL *CBC With Platelet and Differential ----Absolute Eosinophils 0.00 72913827 0.00-0.50 10*3 ----Absolute Monocytes 0.83 49794602 0.30-1.00 10*3 ----Neutrophils 75 69137878 51-75 % ----Absolute Basophils 0.02 42185452 0.00-0.20 10*3 ----MPV 10.0 26510578 8.8-14.8 fL ----Monocytes 9 80269497 4-11 % ----RDW 12.1 49539538 11.5-14.5 % ----Lymphocytes 15 51351391 20-46 % L ----MCHC 33.8 11058781 32.0-36.0 g/dL ----MCH 31.1 02933307 27.0-32.0 pg ----MCV 91.8 17812621 82.0-99.0 fL ----Immature Granulocytes 0.3 47179562 0.0-1.0 % ----Platelet Count 288 40344932 150-400 K/uL ----Absolute Lymphocytes 1.30 95129687 0.80-3.30 10*3 ----Absolute Neutrophils 6.68 20415230 1.90-7.00 10*3 ----Eosinophils 0 98853290 0-4 % ----Basophils 0 88952573 0-2 % ----WBC 8.9 60456262 4.8-10.8 K/uL ----RBC 4.99 85445920 4.60-6.20 10*6/uL ----HGB 15.5 64085905 14.0-18.0 g/dL ----HCT 45.8 93737892 42.0-52.0 % *Comprehensive Metabolic Panel (CMP) ----Chloride 102 20160212 99-111 mEq/L ----Potassium 4.6 20160212 3.5-5.2 mEq/L ----Albumin 4.9 51048392 3.5-5.0 g/dL ----CO2 27 20160212 23-31 mEq/L ----Alkaline Phosphatase 97 20160212 40-150 U/L ----Protein 7.5 70562064 6.1-7.7 g/dL ----Bilirubin Total 0.7 20160212 0.2-1.2 mg/dL ----Anion Gap 11 20160212 3-20 ----Calcium 10.1 61742489 8.9-10.5 mg/dL ----Globulin 2.6 18609668 1.8-4.0 g/dL ----Sodium 140 98208665 135-144 mEq/L ----BUN 12 20160212 9-21 mg/dL ----ALT (SGPT) 24 20160212 0-55 U/L ----AST (SGOT) 34 20160212 5-34 U/L ----Creatinine 1.10 20160212 0.72-1.25 mg/dL ----Glucose 120 20160212 70-99 mg/dL H Estimated Average Glucose ----Estimated Average Glucose 108.3 20160212 mg/dL *Hemoglobin A1C ----Hemoglobin A1C 5.4 20160212 4.1-5.6 % Non-HDL Cholesterol ----Non-HDL Cholesterol 181 20160212 0-159 mg/dL H *TSH ----TSH 2.55 75418272 0.35-4.94 uIU/mL Summary Purpose eClinicalWorks Submission
--- NOTE | 2016-11-26 19:05 | NUR ---
NS AND ZOFRAN NS AND ZOFRAN GIVEN AT THIS TIME PER VERBAL ORDER DR. SIMMONS.
[2016-11-26] MEDS ORDERED: ALPR0.25 PO (19:06)
[2016-11-26 19:27] LABS: HCT - HEMATOCRIT 48.7 % (41-53); HGB - HEMOGLOBIN 16.8 GM/DL (13.5-17.5); MEAN CORPUSCULAR HGB 30.9 UUG (26-34); MEAN CORPUSCULAR HGB CONC(MCHC 34.5 GM/DL (31-37); MEAN CORPUSCULAR VOLUME 89.5 UM3 (80-100); MEAN PLATELET VOLUME 10.4 UM3 (9.4-12.4); RED BLOOD COUNT 5.44 M/MM3 (4.50-5.90); WBC - WHITE BLOOD COUNT 9.3 T/MM3 (4.5-11.0)
[2016-11-26] MEDS ORDERED: ONDANSETRON 4mg/2ml INJECTION IV ONE (19:30)
[2016-11-26] MEDS ORDERED: NORMAL SALINE 1,000 ML IV ONE ×2 (19:30→20:00)
[2016-11-26 19:31] LABS: ALBUMIN 5.6 G/DL (3.5-5.0); ALBUMIN/GLOBULIN RATIO 1.6 RATIO (1.1-2.2); ALKALINE PHOSPHATASE 133 U/L (38-126); ALT (SGPT) 249 U/L (21-72); ANION GAP 39 MEQ/L (5-15); AST (SGOT) 228 U/L (17-59); BUN/CREATININE RATIO 7 RATIO (6-26); CHLORIDE 98 MEQ/L (98-107); CO2 - CARBON DIOXIDE 11 MEQ/L (22-30); CREATININE 1.7 MG/DL (0.8-1.5); GLOMERULAR FILTRATION RATE 46; GLUCOSE 181 MG/DL (75-110); POTASSIUM 3.3 MEQ/L (3.6-5); SODIUM 148 MEQ/L (134-144); TOTAL PROTEIN 9.2 G/DL (6.3-8.2)
--- OUTSIDE RECORDS SUMMARY | 2016-11-26 19:34 | XMS REPORT | Continuity of Care Document ---
Author Author [facility] Organization [facility] Address Unknown Phone Unavailable Allergies Active Description [...] - 12/12/13 14: 10 Microbiology METABOLIC PANEL, [facility] - 12/13/13 04:24 POTASSIUM 3.6 mmol/L 3.5-5.3 [...] Status Pt. Type Provider Facility Loc./Unit Complaint [id number] 12/11/2013 08:35:00 2013 14:50:00 DIS Inpatient [facility], [facility] [id number]
[2016-11-26 19:42] LABS: BAND NEUTROPHILS # 0.3 T/MM3; EOSINOPHILS # (MANUAL) 0.1 T/MM3 (0-0.5); LYMPHOCYTES # (MANUAL) 0.5 T/MM3 (1-4.8); MONOCYTES # (MANUAL) 0.2 T/MM3 (0-0.8); NEUTROPHILS #(MANUAL)-ABSOLUTE 8.3 T/MM3 (1.8-7.7); TOTAL CELLS COUNTED 100 %
[2016-11-26 19:47] LABS: LIPASE 182 U/L (23-300)
--- NOTE | 2016-11-26 19:50 | NUR ---
PT STATUS PT HAS HAD NO FURTHER NAUSEA OR VOMITING SINCE ZOFRAN WAS GIVEN. PT REPORTS BODY CRAMPING. PT WAS ABLE URINATE, DARK CELSO IN COLOR. SENT TO LAB.
--- NOTE | 2016-11-26 19:50 | NUR ---
PROVIDER ALEXY WELLS APRN IN ROOM WITH PT.
[2016-11-26 19:55] LABS: BLOOD, URINE NEGATIVE (NEGATIVE); COLOR,URINE ORANGE (YELLOW); LEUKOCYTE ESTERASE ,URINE NEGATIVE (NEGATIVE); NITRITE,URINE NEGATIVE (NEGATIVE)
[2016-11-26] MEDS ORDERED: LORAZEPAM 2 MG/ML INJECTION IV ONE (20:00)
[2016-11-26 20:02] LABS: BACTERIA,URINE 1+ (NEGATIVE); MUCUS,URINE PRESENT; RBC,URINE 0-1 /HPF (0-3)
--- NOTE | 2016-11-26 20:04 | ERPDOC ---
Departure Disposition Decision Date: Nov 26, 2016 Disposition Decision Time: 21:44 Disposition: 01 DISCHARGED HOME, SELF-CARE Impression Impression Impression: Primary Impression: Nausea & vomiting Additional Impressions: Dehydration Elevated liver enzymes Condition: Stable Seen By: Mid-level only Referrals: [facility] recommend follow in one month regarding elevated liver function tests. [facility] follow up within the next month regarding elevated liver function tests Patient Instructions: Acute Nausea and Vomiting (ED), Dehydration (ED) Problems/Meds/Labs Reviewed?: Yes Medications reviewed and manag: Yes Additional Instructions: A COPY OF YOUR LAB WAS GIVEN FOR YOU TO GIVE TO YOUR PRIMARY CARE PHYSICIAN . WE RECOMMEND FOLLOW UP WITH A PHYSICIAN IN ONE MONTH UNLESS NEEDED BEFORE THAT TIME. RECOMMEND FLUID DIET ONLY UNTIL NAUSEA IS GONE. TAKE ZOFRAN 4 MG EVERY 6 HOURS NEEDED FOR NAUSEA. Follow up care ordered?: Yes Mental Status: Alert, Oriented Scripts Ondansetron (Zofran Odt) 4 Mg Tab.rapdis 4 MG PO Q6HR Y for NAUSEA &/OR VOMITING, #12 TAB Oral disintegrating tablet Prov: ALEXY WELLS APRN 11/26/16 HPI - Abdominal Pain General Chief Complaint: Nausea,Vomiting,Diarrhea Stated Complaint: VOMITING, DEHYDRATION, SWEATS, Time Seen by Provider: 19:04 Source: patient History/Exam Limitations: no limitations HPI - Abdominal Pain Initial Comments Patient presents with sudden onset of nausea and violent vomiting that started a couple hours prior to ER arrival. Patient states a history of anxiety. He also reports a history of prior heavy alcohol use. However states now he just drinks "a few beers a day". States in the past 24 hours has only had one beer. Patient states he has a had a history of liver problems, however states that "this is all better now". Patient presents very anxious, dry heaving and tremulous. 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 but t hats better now " ) Psychological: alcohol abuse, anxiety Social History Alcohol Intake: daily, other (former "heavy drinker" but states 'drinks a few beers every day now" ) Review of Systems Constitutional Constitutional: appetite decrease, see HPI, weakness, DENIES: chills, dizziness , fever Eyes General: DENIES: burning, itching Lids/Accessories: DENIES: erythema, swelling ENMT Ears: DENIES: pain Hearing: DENIES: tinnitus Balance: DENIES: vertigo Sinuses: DENIES: rhinorrhea Mouth/Throat: DENIES: painful swallowing, sore throat Cardiovascular Cardiac: DENIES: chest pain Rhythm/Rate: DENIES: tachycardia Pulmonary Respiratory: DENIES: cough, dyspnea, pleuritic chest pain, sputum GI Upper Abdomen: nausea, see HPI, vomiting Lower Abdomen: see HPI, DENIES: blood in stool, constipation, diarrhea General: other (decreased UOP past 24 hours ), see HPI, DENIES: dysuria Integumentary Skin: DENIES: rash Neurological General: DENIES: headache, syncope Psychiatric Psychiatric: anxiety Hematologic/Lymphatic Hematologic/Lymphatic: DENIES: anemia, easy bruising Allergic/Immunological Allergic/Immunoligical: DENIES: sneezing All other Systems All Other Systems: Reviewed and Negative Physical Exam General General Nourishment: appears stated age, adult, acute distress (distress due to nausea/ dry heaving and anxiety ) Vitals and Pain First Documented Vital Signs Date Time Temp Pulse Resp B/P Pulse Ox O2 Delivery O2 Flow Rate FiO2 11/26/16 18:25 98.7 110 40 151/95 98 Room Air Weight: Kilograms: 80.000 Height (feet): 5 Height (inches): 11.00 Triage Pain Scale: Normal Exams: Head: Normocephalic w/o trauma Eyes: Pupils are PERRLA w/ EOMI, No scleral icterus, irritation, or foreign bodies noted Neck: Full range of motion, without adenopathy, JVD, bruits or thyromegaly Chest/Resp: Clear all vazquez, with good airflow, and symmetry bilaterally CV: Regular rate and rhythm, without murmur or gallop, Pulses 2+ all extremities, capillary refill, <2 seconds all ext., no pedal edema noted Lymphatic: No lymphadenopathy, or lymphedema noted Musculoskeletal: No tenderness, or deformity noted, good range of motion, all extremities Integumentary: No rashes, hives, or bruising noted, hair and nails, without abnormality Neurologic: Patient is alert, and oriented, cranial nerves, motor/sensory/ cerebellar, exams w/o gross deficits, to observation Psychiatric: Patient exhibits, appropriate attention Abdomen (brief) Abdominal Brief: FOUND: bowel normo active x4, soft, tender (diffuse tenderness ; non focal ), NOT FOUND: distended, hepatosplenomegaly Psychiatric (brief) Psychiatric Brief: FOUND: alert, oriented, other (anxious ) Progress Results/Orders Orders Procedure Category Date Status Time Cbc W/Auto LAB 11/26/16 Complete Diff-Reflex Manual Cmp - Comprehensive LAB 11/26/16 Complete Metabolic Lipase LAB 11/26/16 Complete UA, LAB 11/26/16 Complete Dip&Micro(Complete) & 19:07 Ondansetron Inj PHA 11/26/16 Complete (Zofran) 19:30 Normal Saline (Normal PHA 11/26/16 Complete Saline Iv) 19:30 Lorazepam (Ativan) PHA 11/26/16 Logged 20:00 Normal Saline (Normal PHA 11/26/16 Logged Saline Iv) 20:00 Blood Gas, Venous - LAB 11/26/16 Complete VBG Bmp - Basic Metabolic LAB 11/26/16 Complete Panel Ondansetron Odt PHA 11/26/16 In Process (Prepack) (Zofran Odt 22:00 Lab Results Laboratory Tests Test 11/26/16 19:04 11/26/16 19:49 11/26/16 21:11 White Blood Count 9.3T/MM3 Red Blood Count 5.44M/MM3 Hemoglobin 16.8GM/DL Hematocrit 48.7% Mean Corpuscular Volume 89.5UM3 Mean Corpuscular Hemoglobin 30.9UUG Mean Corpuscular Hemoglobin Concent 34.5GM/DL RDW Standard Deviation 40.6FL Platelet Count 346T/MM3 Mean Platelet Volume 10.4UM3 Immature Granulocyte % (Auto) % Neutrophils (%) (Auto) % Lymphocytes (%) (Auto) % Monocytes (%) (Auto) % Eosinophils (%) (Auto) % Basophils (%) (Auto) % Absolute Immature Granulocyte (auto T/MM3 Absolute Neutrophils (auto) T/MM3 Absolute Lymphocytes (auto) T/MM3 Absolute Monocytes (auto) T/MM3 Absolute Eosinophils (auto) T/MM3 Absolute Basophils (auto) T/MM3 Neutrophils % (Manual) 89.0% Band Neutrophils % 3.0% Lymphocytes % (Manual) 5.0% Monocytes % (Manual) 2.0% Eosinophils % (Manual) 1.0% Absolute Neutrophils (Manual) 8.3T/MM3 Band Neutrophils # 0.3T/MM3 Lymphocytes # (Manual) 0.5T/MM3 Monocytes # (Manual) 0.2T/MM3 Eosinophils # (Manual) 0.1T/MM3 Red Cell Morphology Comment Normal Turbidity < 20 < 20 Sodium Level 148MEQ/L 144MEQ/L Potassium Level 3.3MEQ/L 3.7MEQ/L Chloride Level 98MEQ/L 105MEQ/L Carbon Dioxide Level 11MEQ/L 21MEQ/L Anion Gap 39MEQ/L 18MEQ/L Blood Urea Nitrogen 11.0MG/DL 12.0MG/DL Creatinine 1.7MG/DL 1.1MG/DL Glomerular Filtration Rate Calc 46 76 BUN/Creatinine Ratio 7RATIO 11RATIO Glucose Level 181MG/DL 113MG/DL Calculated Osmolality 288MOSM/KG 278MOSM/KG Calcium Level 11.0MG/DL 9.1MG/DL Total Bilirubin 2.10MG/DL Icterus Index < 2 < 2 Aspartate Amino Transf (AST/SGOT) 228U/L Alanine Aminotransferase (ALT/SGPT) 249U/L Alkaline Phosphatase 133U/L Total Protein 9.2G/DL Albumin 5.6G/DL Globulin 3.6G/DL Albumin/Globulin Ratio 1.6RATIO Lipase 182U/L Chemistry Specimen Hemolysis < 15 < 15 Urine Collection Type Voided-not cc-midstr Urine Color [place] Urine Turbidity Cloudy Urine pH 6.0 Urine Specific [place] 1.025 Urine Protein 2+ Urine Glucose (UA) Negative Urine Ketones 3+ Urine Blood Negative Urine Nitrite Negative Urine Bilirubin 2+ Urine Urobilinogen 2.0EU/DL Urine Leukocyte Esterase Negative Urine RBC 0-1/HPF Urine WBC 5-10/HPF Urine Squamous Epithelial Cells 5-10 Urine Bacteria 1+ Urine Hyaline Casts 3-5/LPF Urine Mucus Present Urine Culture Indicated Cult not indicated Venous Blood pH 7.490 Venous Blood Partial Pressure CO2 30MMHG Venous Blood Partial Pressure O2 50MMHG Venous Blood HCO3 23MEQ/L Venous Blood Total Carbon Dioxide 23.8MEQ/L Venous Blood Oxygen Saturation 88.0% Venous Blood Base Excess 0.3MMOL/L Oxygen Delivery Method (LAB) Room air Blood Gas Oxygen Liter Flow Blood Gas Oxygen Percent Given Medications Current ED Medications Ondansetron HCl 4 mg 4 mg O ONCE IV Last administered on 11/26/16 19:05; Start 11/26/16 at 19:30; Stop 11/26/16 at 19:31; Status DC Sodium Chloride (Normal Saline IV) 1,000 ml @ 1,000 mls/hr Q1H ONCE IV Last administered on 11/26/16 19:05; Start 11/26/16 at 19:30; Stop 11/26/16 at 20:29 ; Status DC Lorazepam 1 mg 1 mg O ONCE IV Last administered on 11/26/16 20:01; Start at 20:00; Stop 11/26/16 at 20:01; Status UNV Sodium Chloride (Normal Saline IV) 1,000 ml @ 1,000 mls/hr Q1H ONCE IV Last administered on 11/26/16 20:01; Start 11/26/16 at 20:00; Stop 11/26/16 at 20:59 ; Status UNV Ondansetron HCl (ZOFRAN ODT (PrePack)) 1 pack O ONCE SENT HOME ; Start at 22:00; Stop 11/26/16 at 22:01 Progress Progress Repeat lab check (BMP ) and Venous blood gas indicate stabilization after rehydration. Liver enzymes are elevated; patient states hx of elevation LFT but is not sure of baseline and we have no records. Will give patient a copy of his lab and stressed to patient the importance of following up with a physician for monitoring of these levels. Patient states understanding. ALEXY WELLS APRN Nov 26, 2016 20:04
[2016-11-26 21:20] LABS: VBG TOTAL CO2 23.8 MEQ/L
[2016-11-26 21:27] LABS: ANION GAP 18 MEQ/L (5-15); BUN/CREATININE RATIO 11 RATIO (6-26); CALCIUM 9.1 MG/DL (8.4-10.2); CHLORIDE 105 MEQ/L (98-107); CO2 - CARBON DIOXIDE 21 MEQ/L (22-30); CREATININE 1.1 MG/DL (0.8-1.5); GLOMERULAR FILTRATION RATE 76; GLUCOSE 113 MG/DL (75-110); POTASSIUM 3.7 MEQ/L (3.6-5); SODIUM 144 MEQ/L (134-144)
[2016-11-26] MEDS ORDERED: ONDA4TAB7 PO (21:51)
[2016-11-26] MEDS ORDERED: ONDANSETRON ODT 4mg #3 (PrePack) SENT HOME ONE (22:00)
--- NOTE | 2016-11-26 22:10 | NUR ---
REPORT RECEIVED AND CARE ASSUMED AT THIS TIME.
--- NOTE | 2016-11-26 22:30 | NUR ---
IVL SITE DC'D AT THIS TIME. CATH INTACT. DRSG APPLIED TO SITE.
[2016-11-26 22:33] VITALS: BP 123/87; PULSE 110; RESP 18; O2SAT 99
--- NOTE | 2016-11-26 22:33 | NUR ---
DISMISSAL INSTRUCTIONS, ZOFRAN RX AND PREPACK GIVEN/REVIEWED WITH PT. PT VERBALIZES UNDERSTANDING. PT LEAVES DEPT AMBULATORY UPON DISMISSAL.
== END 2016-11-26 22:33 | disposition home or self-care (01) ==
LOC: ED 18:12
DX: R11.2 Nausea with vomiting, unspecified (principal); F41.9 Anxiety disorder, unspecified; E86.0 Dehydration; R74.8 Abnormal levels of other serum enzymes
CPT/HCPCS: 36415; 80048; 80053; 81001; 82803; 83690; 85025; 96361; 96374; 96375; 99284; J2060; J2405; J7030